=== PATIENT | female | born 1995 | race Hispanic/Latino ===

== ENCOUNTER 2020-06-18 06:44 | Outpatient (CLI) | payer OTHER, MEDICAID ==
--- NOTE | 2020-06-18 07:46 | ULT ---
Obstetric sonogram HISTORY: Second trimester gestation. evaluation. FINDINGS: Single intrauterine gestation in breech presentation. Cervix is closed and 4.3 cm. Grade 0 placenta is posterior and fundal. Amniotic fluid is within normal limits. spine and kidneys are intact. No gross intracranial abnormalities are apparent. Four-chamber heart motion at 135 bpm. Stomach is on the left side. Umbilical cord insertion normal. Measurements are as follows: Biparietal diameter 21 weeks 1 day Head circumference 21 weeks 1 day Abdominal circumference 21 weeks 1 day Femur length 21 weeks 1 day [place] 4%. Estimated date of delivery based on today's sonogram 10/28/2020. IMPRESSION : Single intrauterine gestation. Size measurements lower limits of normal compared to reported last men strual period age. Estimated gestational age on today's exam 21 weeks 1 day.
== END 2020-06-18 06:45 | disposition home or self-care (01) ==
LOC: BICULT 06:44
PROVIDERS: ATTEND Family Medicine
DX: O09.892 Supervision of other high risk pregnancies, second trimester (principal)
CPT/HCPCS: 76805